=== PATIENT | male | born 2000 | race Caucasian/White ===

== ENCOUNTER 2023-04-09 08:07 | Emergency (ER) | payer OTHER ==
[2023-04-09 08:11] VITALS: BP 108/68; PULSE 74; RESP 20; TEMP 98.6; BMI 24.3
[2023-04-09] MEDS ORDERED: IBUPROFEN 400 MG TABLET (FP) PO ONE ×2 (09:32→09:39)
== END 2023-04-09 09:48 | disposition home or self-care (01) ==
LOC: JERFT 08:07
DX: S46.912A Strain of unspecified muscle, fascia and tendon at shoulder and upper arm level, left arm, initial encounter (principal); M25.512 Pain in left shoulder; X50.0XXA Overexertion from strenuous movement or load, initial encounter; Y93.F2 Activity, caregiving, lifting; Y99.0 Civilian activity done for income or pay
CPT/HCPCS: 99283-25